=== PATIENT | male | born 1955 | race Caucasian/White ===

== ENCOUNTER 2020-11-01 06:39 | Emergency (ER) | payer MEDICAID, SELFPAY ==
--- NOTE | 2020-11-01 06:40 | W.ED.NECK ---
HPI - Neck Pain/Injury General: Chief Complaint: Neck Pain/Injury Stated Complaint: swollen glands Time Seen by Provider: 11/01/20 06:40 History of Present Illness: HPI Narrative: This is a 65-year-old male who presents from home with his with complaint of painful and difficulty swallowing that started this morning when he woke up however he has noticed swelling in his bilateral neck since Wednesday so about 4 days. He denies any recent dental work or dental pain. He denies any medication usage as he denies ISIDRO inhibitor's he denies taking any medicine on a regular basis. He denies allergic reaction or any rashes. 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 He denies any recent fevers or chills. He feels he is having difficulty breathing in his upper airway he denies a recent cough or chest pain he does have some difficulty speaking he is able to open his mouth he denies any ear pain Patient denies smoking. He had Covid last April Severity: moderate Severity scale (1-10): 8 Associated symptoms: Denies headache(s) Review of Systems General: Reports: 10 or more systems reviewed and unremarkable except in HPI and below Const: Denies: fever(s), chills, body aches or change in appetite Eyes: Denies: change in vision ENMT: Reports: throat pain, enlarged tonsils, odynophagia, hoarseness and swelling of lips/tongue Card: Denies: chest pain Resp: Reports: dyspnea and stridor; Denies: productive cough or non-productive cough GI: Denies: abdominal pain : Denies: flank pain Musc: Reports: neck pain Skin/Breast: Denies: rash Neuro: Denies: headache(s), numbness in extremities or weakness in extremities Nam/Lymph: Denies: easy bruising or petechiae All/Imm: Reports: throat swelling and tongue swelling; Denies: urticaria Physical Exam Const: COMMON NORMALS: patient oriented x3, no limitations, healthy appearing and alert GENERAL APPEARANCE: cooperative and well developed ORIENTATION/CONSCIOUSNESS: Yes awake, Yes oriented to person, Yes oriented to place and Yes oriented to time HENMT: COMMON NORMALS: normocephalic, atraumatic, hearing grossly normal bilaterally, external ears normal, EAC's normal, Normal external nose present and moist oral mucous membranes; oropharynx not normal (tongue, posterior pharynx edema, muffled speech) HEAD & SCALP: normocephalic and atraumatic FACE & SINUS: normal facial exam NOSE: Normal external nose present EXTERNAL EAR: Yes external ears normal EXTERNAL AUDITORY CANAL: EAC's normal MOUTH: Normal oral and palatal mucosa present and moist mucous membranes abnormal Eye: COMMON NORMALS: conjunctivae normal CONJUNCTIVA: Yes conjunctivae normal Neck/C-Spine: GENERAL: Yes trachea midline, Yes anterior neck swelling, Yes tender and Yes submandibular swelling (bilateral large masses tender) CERVICAL SPINE: Yes cervical ROM normal OTHER: Patient does have some stridor noted but he is not grunting he does not have accessory muscle use and he is not respiratory distress O2 sats are stable There is some right peritonsillar edema his uvula cannot be visualized he has mild edema of his tongue his lips appear normal NECK IMAGES: 1. mass 2. mass, tender Chest: COMMONS NORMALS: normal inspection of the chest Breast/axilla inspection: Yes no chest deformity, asymmetry, normal contours, no nodules, masses, tenderness Resp: COMMON NORMALS: normal respiratory effort (slightly increased, stridor), No retractions, No use of accessory muscles and clear to auscultation bilaterally EFFORT & INSPECTION: Yes able to speak in complete sentences (can speak but refers to and uses short answers), Yes symmetric chest movement and Yes stridor AUSCULTATION: clear to auscultation bilaterally Cardio: COMMON NORMALS: regular rate, regular rhythm and No murmurs present (Cardio) RATE: regular rate RHYTHM: regular rhythm PERIPHERAL PULSES: radial pulses present GI: COMMON NORMALS: Normal to inspection, nondistended, normoactive bowel sounds present, Soft to palpation, non-tender and no masses INSPECTION: Yes normal to inspection AUSCULTATION: Yes normoactive bowel sounds PALPATION: Yes Soft to palpation PERCUSSION: normal to percussion RECTAL EXAM: Yes deferred Back/Pelvis: COMMON NORMALS: thoracic and lumbar spine normal to inspection Extremity: COMMON NORMALS: normal to inspection and full ROM Neuro: COMMON NORMALS: patient oriented x3 and CN's II-XII intact bilaterally SENSORIUM/ORIENTATION: Yes alert, Yes oriented to person, Yes oriented to place and Yes oriented to time Psych: COMMON NORMALS: mental status grossly normal and cooperative Skin: COMMON NORMALS: no rashes or lesions noted GENERAL SKIN EXAM: no rashes or lesions noted Course ED course: Patient has stable O2 sats he does have some stridor present but he is maintaining his airway. This patient has either some type of mass and/or infection you cannot visualize his posterior pharynx he has no visualization of his uvula he does have a lot of posterior soft tissue edema. Patient's airway is intact at this time however he has significant risks of having pending airway compromise and potentially would need a chronic/trach. We have no ENT at this facility should he become a difficult airway. The decision was quickly made to get this patient transferred to a higher level of care to obtain further studies he needs a CT of his neck to determine the exact cause however I felt that these procedures could take several hours and this could potentially delay definitive treatment should he need a more definitive airway like a tracheostomy. He definitely needs admission with his angioedema and or neck masses and we do not have that capability at this facility. I feel his airway is stable at this time is upright he is breathing his sats are 95% he is in no distress he is not grunting he is not using accessory muscles use so I feel he is stable for transfer however I feel he does need to get to the appropriate facility sooner than later and I do not feel I need to waste time by doing testing because what ever I find I am not going to be able to fix here and he needs either oral surgery and/or ENT consults when this patient is admitted. I felt it is best this patient be transferred by helicopter as if he were to have some type of airway compromise there trained and capable of obtaining a surgical airway like a kite cricothyroidotomy Patient agrees to go to [place] therefore contacted [facility] emergency department Dr. Seniro accepts this patient and we did discuss airway possibilities however since he is maintaining at this time and in no distress I feel it is best we just get him transferred Air-Evac crew was here and we also discussed his airway they do feel comfortable transporting him like this at this time and agree its probably best we just get him to definitive higher level of care as he is stable and maintaining his O2 sats in no respiratory distress they do feel comfortable transporting him as is but will be prepared to establish an airway or surgical airway should the need arise Patient had Covid in April however did go ahead and do a rapid antigen Covid to help out with the accepting facility so they will already have that test completed. His white count is 205,000 his thinks the last time he had a checked it was 75,000. Vital Signs: Vital signs: Vital Signs Temperature 98.4 F 11/01/20 06:44 Pulse Rate 73 11/01/20 08:08 Respiratory Rate 16 11/01/20 08:08 Blood Pressure 134/87 11/01/20 08:08 Pulse Oximetry 96 11/01/20 08:08 MDM - Neck Pain/Injury Lab Data: Labs: Lab Results 11/01/20 11/01/20 11/01/20 Range/Units 06:40 06:40 07:16 WBC 205.0 H* (4.0-10.0) 10^3/ uL RBC 4.09 L (4.1-5.3) 10^6/u L Hgb 12.1 (11.7-16.6) g/dL Hct 39.8 L (42.0-52.0) % MCV 97.3 H (80-94) fL MCH 29.6 (28.0-34.0) pg MCHC 30.4 (30.0-36.0) g/dL RDW 17.3 H (12.1-15.1) % Plt Count 133 (130-400) 10^3/c mm MPV 10.5 H (7.4-10.4) fL Lymph % (Auto) Not Reportable [place] % (Auto) Not Reportable Lymph # (Auto) Not Reportable [place] # (Auto) Not Reportable Total Counted 100 (0-100) Atypical Lymphs % 0.0 (0-5) % Absolute Neutrophi ls 4.1 (1.4-6.5) 10^3/c mm Segmented Neutroph ils 1 % Abs Segm Neuts (Ma n) 2.1 (1.6-7.1) 10/cmm Band Neutrophils 1.0 % Abs Band Neuts (Ma n) 2.1 H (0.0-1.2) 10^3/c mm Absolute Lymphocyt es 192.7 H (1.2-3.4) 10^3/c mm Lymphocytes (Manua l) 94 % Monocytes (Manual) 1.0 % Absolute Monocytes 2.1 H (0.1-0.6) 10^3/c mm Eosinophils (Manua l) 0 % Absolute Eosinophi ls 0.0 (0.0-0.7) 10^3/c mm Basophils (Manual) 0.0 % Absolute Basophils 0.0 (0.0-0.2) 10^3/c mm Blast Cells 3 H* (0-0) % Platelet Estimate Decreased (Normal) Sodium 140 (136-145) mmol/L Potassium 4.5 (3.5-5.1) mmol/L Chloride 101 (98-107) mmol/L Carbon Dioxide 31 H (22-29) mmol/L Anion Gap 12.5 (5-19) BUN 17 (8-23) mg/dL Creatinine 1.0 (0.7-1.2) mg/dL GFR Calculation 74.8 L (90-130) mL/min Glucose 117 H (65-115) mg/dL Calculated Osmolal ity 293 (285-295) mOsm/k g Calcium 9.6 (8.5-10.5) mg/dL Total Bilirubin 0.8 (0.15-1.2) mg/dL Direct Bilirubin 0.20 (0.00-0.30) mg/d L AST 12 (0-40) U/L ALT 9 (0-41) U/L Alkaline Phosphata se 117 (40-130) IU/L Total Protein 7.5 (6.6-8.7) g/dL Albumin 4.4 (3.5-5.2) g/dL Globulin 3.1 (1.3-4.6) g/dL SARS-CoV-2 Ag (Rap id) Negative (Negative) Critical Care Time Critical Care Time: Total Critical Care Time: 45 Attestation: Immediate evaluation of airway compromise respiratory status and cardiovascular status Consultation with transferring hospital consultation with the Air-Evac medical crew Review of previous records arranging transport interpretation of tests Discharge Plan Discharge Patient Disposition: Xfer Short-Term Hosp Clinical Impression: Multiple masses of neck, Airway compromise, Edema of pharynx, Leukocytosis Condition: Critical Coding Level of Care Code ED Supervisor [employer] for Reynaldo Evans
[2020-11-01 06:44] VITALS: BP 151/90; PULSE 85; RESP 22; TEMP 36.9; O2SAT 95; BMI 29.2
[2020-11-01 07:02] LABS: Hematocrit 39.8 % (42.0-52.0); Hemoglobin 12.1 g/dL (11.7-16.6); Mean Corpuscular HGB Conc 30.4 g/dL (30.0-36.0); Mean Corpuscular Hemoglobin 29.6 pg (28.0-34.0); Mean Corpuscular Volume 97.3 fL (80-94); Mean Platelet Volume 10.5 fL (7.4-10.4); Platelet Count 133 10^3/cmm (130-400); Red Blood Count 4.09 10^6/uL (4.1-5.3); Red Cell Distribution Width 17.3 % (12.1-15.1)
[2020-11-01] MEDS: dexamethasone 10 mg/mL INJ IVP (07:05)
--- NOTE | 2020-11-01 07:05 | XR_ITS ---
WS: [id number] AP and lateral soft tissue views of the neck, 11/01/2020 Clinical Data: neck edema Comparison: None. Findings: There is soft tissue swelling of the neck seen best on the AP view. There is also soft tissue swellin g seen on the lateral view between the inferior aspect of the mandible and the cricoid cartilage. The re is narrowing of the hypopharynx anterior to the C1 and C2 vertebral bodies. There is distention of the hypopharynx anterior to the C3-C6 vertebral bodies. The proximal trachea is also slightly dilate d. The lung apices are unremarkable. There is osteoarthritic spurring of the vertebral bodies C4, C5 and C6. XR/XR soft tissue neck [id number] Impression: 1. Soft tissue swelling of the neck with narrowing of the proximal hypopharynx. 2. Distention of the distal hypopharynx and proximal trachea.
[2020-11-01 07:15] VITALS: BP 134/87; PULSE 72; RESP 15; O2SAT 94
[2020-11-01 07:17] LABS: Alanine Aminotransferase 9 U/L (0-41); Albumin Level 4.4 g/dL (3.5-5.2); Alkaline Phosphatase 117 IU/L (40-130); Anion Gap 12.5 (5-19); Aspartate Amino Transferase 12 U/L (0-40); Blood Urea Nitrogen 17 mg/dL (8-23); Calcium 9.6 mg/dL (8.5-10.5); Carbon Dioxide 31 mmol/L (22-29); Chloride 101 mmol/L (98-107); Globulin 3.1 g/dL (1.3-4.6); Glomerular Filtration Rate 74.8 mL/min (90-130); Glucose 117 mg/dL (65-115); Osmolality Calculated 293 mOsm/kg (285-295); Potassium 4.5 mmol/L (3.5-5.1); Sodium 140 mmol/L (136-145); Total Bilirubin 0.8 mg/dL (0.15-1.2); Total Protein 7.5 g/dL (6.6-8.7)
[2020-11-01 07:24] LABS: Slide Review Slide Review Perform
[2020-11-01 07:25] LABS: Absolute Neutrophil 4.1 10^3/cmm (1.4-6.5); Absolute Segmented Neutrophil 2.1 10/cmm (1.6-7.1); Band Neutrophils Absolute 2.1 10^3/cmm (0.0-1.2); Blastocytes 3 % (0-0); Eosinophils 0 %; Lymphocytes 94 %; Lymphocytes Absolute 192.7 10^3/cmm (1.2-3.4); Monocytes Absolute 2.1 10^3/cmm (0.1-0.6); Platelet Estimate Decreased (Normal); Segmented Neutrophils 1 %; Total Cells Counted 100 (0-100)
[2020-11-01 07:57] LABS: SARS Covid-2 Antigen Negative (Negative)
[2020-11-01 08:08] VITALS: BP 134/87; PULSE 73; RESP 16; O2SAT 96
== END 2020-11-01 08:17 | disposition short-term general hospital (02) ==
PROVIDERS: Emergency Provider Emergency Medicine
DX: R22.1 Localized swelling, mass and lump, neck (principal); J98.8 Other specified respiratory disorders; J39.2 Other diseases of pharynx; D72.829 Elevated white blood cell count, unspecified
CPT/HCPCS: 70360; 80048; 80076; 85007; 85025; 87426; 96374; 99291; J1100

== ENCOUNTER 2020-11-09 10:28 | Emergency (ER) | payer MEDICAID, SELFPAY ==
[2020-11-09 10:42] VITALS: BP 114/72; PULSE 82; RESP 14; TEMP 37.1; O2SAT 97; BMI 26.7
--- NOTE | 2020-11-09 11:21 | XRR_ITS ---
PROCEDURE INFORMATION: Exam: XR Chest Exam date and time: 11/09/2020 11:22 AM Age: 65 years old Clinical indication: Cough and dyspnea; Additional info: Dyspnea/cough TECHNIQUE: Imaging protocol: XR of the chest. Views: 1 view. COMPARISON: No relevant prior studies available. FINDINGS: Lungs: There is mild atelectasis in the lung bases along the diaphragm. No consolidation. Pleural spaces: There is slight blunting of the left costophrenic angle which may represent a tiny effusion.. Heart/Mediastinum: Unremarkable. No cardiomegaly. Bones/joints: Unremarkable. XR/XR chest 1V portable [id number] IMPRESSION: Mild atelectasis in the lung bases along the diaphragm and probable small left effusion.
--- NOTE | 2020-11-09 11:21 | ECG_ITS ---
[facility] Test Date: 2020-11-09 Pat Name: Pepe Peters Department: Room: Gender: Male Supervisor Blood: : 1955 Requested By: Arian Evans Order Number: [id number] Alberto MD: Ari Oswald M.D. Measurements Intervals [place] Rate: 83 P: 47 NC: 147 QRS: 29 QRSD: 89 T: 67 QT: 357 QTc: 422 Interpretive Statements SINUS RHYTHM SEPTAL MYOCARDIAL INFARCTION , OF INDETERMINATE AGE [40+ ms Q WAVE IN V1/V2] No previous ECG available for comparison Electronically Signed On 11-10-2020 15:33:53 CDT by Ari Oswald M.D. [id number] f
--- NOTE | 2020-11-09 11:50 | ED_ITS ---
HPI - Weakness General: Chief complaint: Weakness Stated complaint: WEAKNESS, LETHARGIC Time Seen by Provider: 11/09/20 10:59 History of Present Illness: HPI Narrative: 65-year-old male presents emergency room states he just does not feeling well. He was here last week and has a nearly compromised airway. He has lymphoma a white count of 205,000 he was transferred emergently by air VAC he was intubated on arrival there and then underwent a tonsillectomy. He was started on chemotherapy for his lymphoma and is just generally feeling very weak today is not had any vomiting of any bleeding from the mouth or throat. MD Complaint: generalized weakness and lack of energy Onset (ago): day(s) Duration: constant Location: generalized Severity: moderate Relieving factors: none Exacerbating factors: none Associated symptoms: Reports myalgias and nausea; Denies chest pain, chills, confusion, melena, decreased appetite, diaphoresis, dysuria, easy bruising, fever(s), headache(s), rash, short of breath, syncope or vomiting Review of Systems Const: Denies: fever(s), chills or diaphoresis ENMT: Denies: throat pain, ear or mastoid pain, nasal discharge or nasal congestion Card: Denies: chest pain or syncope Resp: Denies: dyspnea, productive cough or non-productive cough GI: Reports: nausea; Denies: vomiting or melena : Denies: dysuria Skin/Breast: Denies: rash or pruritus Neuro: Denies: headache(s) or confusion Nam/Lymph: Denies: easy bruising Physical Exam Const: COMMON NORMALS: no acute distress GENERAL APPEARANCE: cooperative and comfortable ORIENTATION/CONSCIOUSNESS: Yes awake, Yes oriented to person, Yes oriented to place and Yes oriented to time HENMT: COMMON NORMALS: normocephalic, atraumatic, hearing grossly normal bilaterally, external ears normal, EAC's normal, TM's normal bilaterally and Normal nasal mucous membranes and turbinates present HEAD & SCALP: normocep halic and atraumatic NOSE: Normal nasal mucous membranes and turbinates present EXTERNAL EAR: Yes external ears normal EXTERNAL AUDITORY CANAL: EAC's normal TYMPANIC MEMBRANE: TM's normal bilaterally OTHER: Posterior pharyngeal wall there is a mucousy eschar in the tonsillar beds no active bleeding minimal localized swelling. No obstruction of the airway no stridor. Eye: COMMON NORMALS: Equal, round and reactive pupils present, EOMs intact bilaterally, conjunctivae normal and no scleral icterus CONJUNCTIVA: Yes conjunctivae normal PUPIL: Yes Equal, round and reactive pupils present Neck/C-Spine: COMMON NORMALS: no JVD Resp: COMMON NORMALS: normal respiratory effort, No retractions, No use of accessory muscles and clear to auscultation bilaterally AUSCULTATION: clear to auscultation bilaterally Cardio: COMMON NORMALS: no JVD, regular rate, regular rhythm and No murmurs present (Cardio) RATE: regular rate RHYTHM: regular rhythm GI: COMMON NORMALS: Soft to palpation and No hepatosplenomegaly present AUSCULTATION: Yes normoactive bowel sounds PALPATION: Yes Soft to palpation, No Tenderness to palpation present (GI), No Guarding due to palpation present (GI) and Yes No hepatosplenomegaly present Extremity: COMMON NORMALS: normal to inspection, capillary refill normal, no clubbing, cyanosis or edema, no calf tenderness and no pedal edema Neuro: SENSORIUM/ORIENTATION: Yes oriented to person, Yes oriented to place and Yes oriented to time Skin: COMMON NORMALS: no rashes or lesions noted GENERAL SKIN EXAM: no rash es or lesions noted Course Vital Signs: Vital signs: Vital Signs Temperature 98.8 F 11/09/20 10:42 Pulse Rate 77 11/09/20 14:06 Respiratory Rate 18 11/09/20 14:06 Blood Pressure 107/62 11/09/20 14:06 Pulse Oximetry 97 11/09/20 14:06 MDM - Weakness MDM Narrative: Medical decision making narrative: Reviewed findings with the patient. At this point I think a lot of his fatigue is due to his previous surgery as well as he recent chemotherapy treatments he received. He does have some mild hyponatremia he was given IV fluids have him follow-up with his primary care doctor. Lab Data: Labs: Lab Results 11/09/20 11/09/20 11/09/20 Range/Units 11:14 11:14 11:57 WBC 7.3 (4.0-10.0) 10^3/ uL RBC 3.44 L (4.1-5.3) 10^6/u L Hgb 10.5 L (11.7-16.6) g/dL Hct 32.1 L (42.0-52.0) % MCV 93.3 (80-94) fL MCH 30.5 (28.0-34.0) pg MCHC 32.7 (30.0-36.0) g/dL RDW 16.5 H (12.1-15.1) % Plt Count 54 L (130-400) 10^3/c mm MPV 13.0 H (7.4-10.4) fL Neut % (Auto) 31.5 % Lymph % (Auto) 64.4 % Lamb % (Auto) 2.2 % Eos % (Auto) 1.1 % Baso % (Auto) 0.3 % Neut # (Auto) 2.31 (1.8-7.7) 10^3/u L Lymph # (Auto) 4.7 (0.8-4.8) 10^3/u L Lamb # (Auto) 0.2 (0.2-0.9) 10^3/u L Eos # (Auto) 0.1 (0.0-0.8) 10^3/u L Baso # (Auto) 0.0 (0.0-0.1) 10^3/u L Nucleated RBC % (a uto) 0 % Nucleated RBCs # 0.0 /100WBC Sodium 130 L (136-145) mmol/L Potassium 4.4 (3.5-5.1) mmol/L Chloride 98 (98-107) mmol/L Carbon Dioxide 26 (22-29) mmol/L Anion Gap 10.4 (5-19) BUN 23 (8-23) mg/dL Creatinine 0.6 L (0.7-1.2) mg/dL GFR Calculation 134.8 H (90-130) mL/min Glucose 97 (65-115) mg/dL Calculated Osmolal ity 274 L (285-295) mOsm/k g Calcium 7.6 L (8.5-10.5) mg/dL Total Bilirubin 1.2 (0.15-1.2) mg/dL AST 13 (0-40) U/L ALT 33 (0-41) U/L Alkaline Phosphata se 68 (40-130) IU/L Total Protein 5.6 L (6.6-8.7) g/dL Albumin 2.9 L (3.5-5.2) g/dL Globulin 2.7 (1.3-4.6) g/dL Urine Color Yellow (Yellow) Urine Appearance Clear (CLEAR) Urine pH 6.5 (5-7) Ur Specific Gravit y 1.010 (1.005-1.030) Urine Protein Neg (Negative) Urine Glucose (UA) Norm (Normal) Urine Ketones Negative (Negative) Urine Blood 2+ H (Negative) Urine Nitrate Negative (Negative) Urine Bilirubin Neg (Negative) Urine Urobilinogen 8 H (Negative) mg/dL Ur Leukocyte Adali ase Negative (Negative) Urine RBC 0-4 H (0-2) /hpf Urine WBC Rare (0-5) /hpf Ur Squamous Epith Cells Rare (0-5) /hpf Amorphous Sediment Not Reportable Urine Bacteria Trace (NONE) /hpf Urine Mucus Trace /hpf Discharge Plan Discharge Patient Disposition: Home Clinical Impression: Lymphoma, Status post tonsillectomy, Weakness, Hyponatremia Condition: Stable Prescriptions: No Action nystatin 100,000 unit/mL suspension See Rx Instructions .ROUTE .COMPLEX RF: 0 hydrocodone-acetaminophen 5-325 mg tablet 1 tab PO Q4H PRN (Reason: Pain) RF: 0 ondansetron HCl 4 mg tablet 4 mg PO TID PRN (Reason: NAUSEA/VOMITING) RF: 0 allopurinol 300 mg tablet 300 mg PO DAILY RF: 0 Chemo Medication See Rx Instructions .ROUTE .COMPLEX RF: 0 Discharge Orders: Discharge ED (Routine); Ordered 11/09/20 Ordered By: Arian Grande Discharge Diet: Usual diet Discharge Activity: Increase activity as tolerated Patient Instructions: Opioid Safety Activity Restrictions/Additional Instructions: Continue current treatment follow-up with your primary care doctor or oncologist as previously planned. Coding Level of Care Code ED Security Sales Consultant for Reynaldo Evans
[2020-11-09 12:20] LABS: Add Urine Microscopic? YES; Bilirubin Urine Neg (Negative); Blood Urine 2+ (Negative); Glucose Urine UA Norm (Normal); Ketones Urine Negative (Negative); Leukocyte Esterase Urine Negative (Negative); Nitrate Urine Negative (Negative); Protein Urine Neg (Negative); Urine Appearance Clear (CLEAR); Urine Color Yellow (Yellow); Urobilinogen Urine 8 mg/dL (Negative); pH Urine 6.5 (5-7)
[2020-11-09 12:23] LABS: Bacteria Urine TRACE /hpf; Mucus Urine TRACE /hpf; RBC Urine 0-4 /hpf (0-2); Squamous Epithelial Cell Urine RARE /hpf (0-5); WBC Urine RARE /hpf (0-5)
[2020-11-09 12:24] LABS: Add Urine Culture? No
[2020-11-09 12:53] LABS: Alanine Aminotransferase 33 U/L (0-41); Albumin Level 2.9 g/dL (3.5-5.2); Alkaline Phosphatase 68 IU/L (40-130); Anion Gap 10.4 (5-19); Aspartate Amino Transferase 13 U/L (0-40); Blood Urea Nitrogen 23 mg/dL (8-23); Calcium 7.6 mg/dL (8.5-10.5); Carbon Dioxide 26 mmol/L (22-29); Chloride 98 mmol/L (98-107); Globulin 2.7 g/dL (1.3-4.6); Glomerular Filtration Rate 134.8 mL/min (90-130); Glucose 97 mg/dL (65-115); Osmolality Calculated 274 mOsm/kg (285-295); Potassium 4.4 mmol/L (3.5-5.1); Sodium 130 mmol/L (136-145); Total Bilirubin 1.2 mg/dL (0.15-1.2); Total Protein 5.6 g/dL (6.6-8.7)
[2020-11-09 13:02] LABS: Basophils % 0.3 %; Eosinophils # 0.1 10^3/uL (0.0-0.8); Eosinophils % 1.1 %; Hematocrit 32.1 % (42.0-52.0); Hemoglobin 10.5 g/dL (11.7-16.6); Lymphocytes # 4.7 10^3/uL (0.8-4.8); Lymphocytes % 64.4 %; Mean Corpuscular HGB Conc 32.7 g/dL (30.0-36.0); Mean Corpuscular Hemoglobin 30.5 pg (28.0-34.0); Mean Corpuscular Volume 93.3 fL (80-94); Monocytes # 0.2 10^3/uL (0.2-0.9); Monocytes % 2.2 %; Neutrophils # 2.31 10^3/uL (1.8-7.7); Neutrophils % 31.5 %; Nucleated Red Blood Cells % 0 %; Platelet Count 54 10^3/cmm (130-400); Red Blood Count 3.44 10^6/uL (4.1-5.3); Red Cell Distribution Width 16.5 % (12.1-15.1); White Blood Count 7.3 10^3/uL (4.0-10.0)
[2020-11-09 13:10] LABS: Slide Review Slide Review Perform
[2020-11-09] MEDS: sodium chloride 0.9% 1,000 ML 999 ML IV (13:12)
[2020-11-09 14:06] VITALS: BP 107/62; PULSE 77; RESP 18; O2SAT 97
== END 2020-11-09 14:08 | disposition home or self-care (01) ==
PROVIDERS: Emergency Provider Family Medicine
DX: R53.1 Weakness (principal); E87.1 Hypo-osmolality and hyponatremia; C85.90 Non-Hodgkin lymphoma, unspecified, unspecified site; Z98.890 Other specified postprocedural states
CPT/HCPCS: 36415; 71045; 80053; 81001; 85025; 87040; 93005; 96360; 99283; J7030